=== PATIENT | female | born 1965 | race African-American/Black ===

== ENCOUNTER → 2016-10-04 | Outpatient (CLI) | payer MEDICARE ==
[2014-10-09 09:50] VITALS: BP 171/74
[~2016-10-04] MED LIST: AMLO10TA4 PO; FURO-69 PO; FURO40TA4 PO; GABA-585 PO; HYDR-2869 PO; HYDRAZALINE PO; INSU100C4 SQ; INSU100I13 SQ; INSU100I17 SQ; INSU100V8 SQ; LABE100T3 PO; LABE200T2 PO; LEVO150T5 PO; LEVO200T5 PO; LEVO75TA5 PO; LISI40TA PO; METF500T4 PO; OMEP40CA5 PO; POTA20TA4 PO
--- NOTE | 2016-10-04 08:58 | RAD ---
PROCEDURE Brain MRI without contrast. HISTORY Frontal headaches. Dizziness. TECHNIQUE Multiplanar and multi sequence magnetic resonance imaging of the brain was performed without contrast. COMPARISON 03/06/2012 FINDINGS There is no restricted diffusion to suggest acute or subacute infarction. There is no susceptibility effect to suggest hemorrhage. There is no mass effect or midline shift. There is no hydrocephalus. There are few scattered foci of T2/FLAIR hyperintensity within the cerebral white matter, a nonspecific finding. There are normal flow voids within the cerebral vessels. There is paranasal sinus mucosal thickening and a suspected small right maxillary sinus mucous retention cyst. There is an expanded empty sella and there is increased bilateral optic nerve sheath fluid. 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 There prominent bilateral Meckel's caves. IMPRESSION 1. Expanded empty sella and increased fluid within the bilateral optic nerve sheaths and Meckel's caves. The combination of these findings most likely due to idiopathic intracranial hypertension/pseudotumor cerebri. 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 2. Scattered foci of signal change within the cerebral white matter, a nonspecific finding. This is slightly more conspicuous compared to the prior study possibly due to differences in imaging technique. The differential in a patient of this age includes chronic small vessel disease and chronic migraine headaches. The distribution and configuration of the majority of these lesions does not favor demyelinating disease. However, this cannot be completely excluded in a patient of this age. Electronically signed by: Roxana Mar (Oct 04, 2016 08:55:59)
== END | disposition home or self-care (01) ==
LOC: MRI 07:49
PROVIDERS: ATTEND Nurse Practitioner Family
DX: R51 Headache (principal); R42 Dizziness and giddiness
CPT/HCPCS: 70551

== ENCOUNTER → 2017-08-22 | Outpatient (CLI) | payer MEDICARE ==
[2017-08-22] MEDS: IOHEXOL 240 MG/ML 50ML VIAL. PO (08:50)
[2017-08-22] MEDS: IOHEXOL 300 MG/ML 100ML VIAL. IV (10:00)
[2017-08-22 10:22] LABS: ISTAT CREATININE 0.7 mg/dL (0.6-1.1)
== END | disposition home or self-care (01) ==
LOC: KCIC CT 08:09
DX: K76.0 Fatty (change of) liver, not elsewhere classified (principal); Z98.84 Bariatric surgery status
CPT/HCPCS: 74177; 82565; Q9966; Q9967

== ENCOUNTER → 2018-06-03 | Outpatient (CLI) | payer MEDICARE ==
[2018-05-09 11:38] VITALS: BP 133/67
[~2018-06-03] MED LIST changes: -LABE100T3 PO; +LABE100T5 PO; -LABE200T2 PO; +LABE200T4 PO; +LEVO175T5 PO; +LISI-130 PO; -LISI40TA PO; +METF500T16 PO; -METF500T4 PO; +MULT1TAB97 PO; +OMEP20TA8 PO; +vitamin b1
--- NOTE | 2018-06-03 14:05 | KCIC ---
Bilateral digital screening mammograms with 3-D tomosynthesis: Reason for examination: Routine screening. Comparison is made to previous studies dated 08/02/2015 and 01/31/2014. Bilateral mammograms in CC and oblique projections were obtained with 2-D imaging and 3-D tomosynthesis imaging on a Siemens Inspiration unit and reviewed on the workstation. Interpretation was made with the benefit of CAD. The skin and nipples show no abnormalities. No abnormal axillary lymph nodes are seen. The breast parenchyma shows scattered fatty and fibroglandular density. (Breast density: Category B.) There are no dominant masses, suspicious calcifications or architectural distortion. Impression: No evidence of malignancy. Recommend routine screening. BI-RAD Category 1: Negative. "Our facility is accredited by the [employer] Mammography Program." This patient's information has been entered into a reminder system for the patient to be notified with the results of her examination and a target date for the next mammogram. Electronically signed by: Kim Steiner MD (06/03/2018 2:01 PM) [id number]
== END | disposition home or self-care (01) ==
LOC: KCIC MAMMO 08:41
PROVIDERS: ATTEND Nurse Practitioner Family
DX: Z12.31 Encounter for screening mammogram for malignant neoplasm of breast (principal)
CPT/HCPCS: 77063; 77067

== ENCOUNTER → 2019-02-23 | Outpatient (CLI) | payer MEDICARE, OTHER ==
[2018-05-09 11:38] VITALS: BP 133/67
--- NOTE | 2019-02-23 16:28 | KCIC ---
EXAM: Thyroid sonogram. HISTORY: Dysphagia. Prior thyroid ablation. TECHNIQUE: Sonographic imaging of the thyroid was performed. COMPARISON: None. FINDINGS: The right thyroid lobe measures 3.2 x 0.8 x 1.0 cm. The left thyroid lobe measures 2.8 x 0.8 x 0.8 cm. The isthmus measures 2 mm. The thyroid parenchyma is diffusely heterogeneous. No discrete nodule or cyst is seen. IMPRESSION: Small heterogeneous thyroid without a discrete nodule. This can be seen as a sequela of prior ablation or sequela of prior thyroiditis. Electronically signed by: Roxana Mar MD (02/23/2019 4:25 PM) [place] [id number]
== END | disposition home or self-care (01) ==
LOC: KCIC US 15:51
PROVIDERS: ATTEND Nurse Practitioner Family
DX: R13.10 Dysphagia, unspecified (principal)
CPT/HCPCS: 76536

== ENCOUNTER → 2020-10-25 | Outpatient (CLI) | payer MEDICARE, OTHER ==
[2018-05-09 11:38] VITALS: BP 133/67
[~2020-10-25] MED LIST changes: +OMEP40CA45 PO; -OMEP40CA5 PO
--- NOTE | 2020-10-25 16:48 | KCIC ---
EXAMINATION: Magnetic resonance imaging (MRI) of the lumbar spine without contrast 10/25/2020 3:35 PM HISTORY: Chronic low back pain with pain across the low back TECHNIQUE: Multiplanar multi-weighted MRI of the lumbar spine was performed without intravenous contr ast using the standard lumbar spine protocol. Contrast information: None administered. COMPARISON: MRI lumbar spine 06/27/2016 FINDINGS: There is 3 mm anterolisthesis of L4 on L5. Vertebral body heights are maintained. Marrow signal inten sity is normal in all sequences. There is disc desiccation from L2-L3 through L4-L5. Conus medullaris terminates at L1. Distal spinal cord signal intensity is normal in all sequences. Abdominal aorta is normal in caliber. No suspicious intraperitoneal abnormality is identified. Visualized portions of t he sacrum appear intact. L2-L3: There is a mild disc bulge. No significant facet arthropathy. No neuroforaminal or spinal morgan l stenosis. Findings are stable. L3-L4: There is a circumferential disc bulge with central disc protrusion, similar to prior examinati on. There is mild facet arthropathy. Mild bilateral neuroforaminal stenosis. No spinal canal stenosis . Findings are stable. L4-L5: There is uncovering of the disc secondary to anterolisthesis with diffuse disc bulge. There is moderate facet arthropathy. There is mild bilateral neuroforaminal stenosis. No spinal canal stenosi s. Findings are stable from prior examination. L5-S1: Disc is normal in configuration. There is moderate facet arthropathy. No neuroforaminal or spi nal canal stenosis. IMPRESSION: Mild degenerative changes of lumbar spine, as described in detail above. Findings are not significant ly changed since 06/27/2016. Electronically signed by: Bianca Uribe MD (10/25/2020 4:45 PM) [id number]
--- NOTE | 2020-10-26 10:51 | KCIC ---
Examination: MRI of the left knee without contrast HISTORY: History of chronic left knee pain COMPARISON: None available TECHNIQUE: Multiplanar, multisequence MR imaging of the left knee was performed without contrast. FINDINGS: The posterior cruciate ligament appears intact. The anterior cruciate ligament is not well-visualized . The visualized portion of the anterior cruciate ligament appears intact. There is complete attenuation of the body of the medial meniscus with blunting of the body of the med ial meniscus with extrusion of the medial meniscus medially likely tear. There is complete cartilage loss identified in the medial compartment. The lateral meniscus appears intact. The medial collateral ligament appears intact. Lateral collateral ligamentous complex including the f ibular collateral ligament, biceps femoris tendon, popliteus tendon appears intact. Large osteophyte formation identified in the medial, lateral, patellofemoral compartments. The extens or mechanism appears intact. Moderate knee joint effusion is identified. The medial, lateral retinaculum appears intact. Moderate increased T2 signal in the soft tissue identified about the knee joint likely edema. Patchy trabecular edema identified in the medial femoral condyle and medial tibial plateau. There are few fo ci of low T2 signal in the knee joint medially could be loose bodies. Subchondral cystic changes iden tified in the medial femoral condyle likely degenerative changes. IMPRESSION: 1. Complete attenuation of the body of the medial meniscus with blunting of the body of the medial me niscus with extrusion of the medial meniscus medially likely tear. 2. Severe tricompartmental degenerative changes, most in the medial compartment.There are few foci of low T2 signal in the knee joint medially could be loose bodies. Consider CT for further evaluation. 3. Moderate knee joint effusion. Electronically signed by: Christiano Holder MD (10/26/2020 10:49 AM) [id number]
== END ==
LOC: KCIC MRI 14:44
PROVIDERS: ATTEND Nurse Practitioner Family
DX: M47.816 Spondylosis without myelopathy or radiculopathy, lumbar region (principal); M43.16 Spondylolisthesis, lumbar region; M48.061 Spinal stenosis, lumbar region without neurogenic claudication; M25.462 Effusion, left knee; M25.762 Osteophyte, left knee
CPT/HCPCS: 72148; 73721

== ENCOUNTER → 2020-11-17 | Outpatient (CLI) | payer MEDICARE ==
[2018-05-09 11:38] VITALS: BP 133/67
--- NOTE | 2020-11-17 16:12 | KCIC ---
Bilateral digital screening mammograms with 3-D tomosynthesis: Reason for examination: Routine screening. Comparison is made to previous studies dated 06/03/2018 and 08/02/2015. Bilateral mammograms in CC and oblique projections were obtained with 2-D imaging and 3-D tomosynthes is imaging on a Siemens Inspiration unit and reviewed on the workstation. The skin and nipples show no acute abnormalities. There is some mild inversion of the nipples which i s unchanged. No abnormal axillary lymph nodes are seen. The breast parenchyma shows scattered fatty a nd fibroglandular density. (Breast density: Category B.) There are no dominant masses, suspicious melina cifications or architectural distortion. Benign calcifications are present. Impression: No evidence of malignancy. Recommend routine screening. BI-RAD Category 2: Benign. "Our facility is accredited by the [employer] Mammography Program." This patient's information has been entered into a reminder system for the patient to be notified wit h the results of her examination and a target date for the next mammogram. Electronically signed by: Kim Steiner MD (11/17/2020 4:09 PM) [id number]
== END ==
LOC: KCIC MAMMO 12:46
PROVIDERS: ATTEND Nurse Practitioner Family
DX: Z12.31 Encounter for screening mammogram for malignant neoplasm of breast (principal)
CPT/HCPCS: 77063; 77067